=== PATIENT | male | born 1955 | race Caucasian/White ===

== ENCOUNTER 2017-12-01 08:30 | Outpatient (RCR) | payer OTHER | END 2017-12-03 | disposition home or self-care (01) | LOC: PT | DX: S43.431D Superior glenoid labrum lesion of right shoulder, subsequent encounter (principal); M75.111 Incomplete rotator cuff tear or rupture of right shoulder, not specified as traumatic ==

== ENCOUNTER 2018-03-28 08:00 | Outpatient (RCR) | payer OTHER | END 2018-04-01 | disposition home or self-care (01) | LOC: PT | DX: M75.121 Complete rotator cuff tear or rupture of right shoulder, not specified as traumatic (principal); S43.431D Superior glenoid labrum lesion of right shoulder, subsequent encounter ==

== ENCOUNTER 2018-05-02 08:00 | Outpatient (RCR) | payer OTHER | END 2018-05-02 08:30 | disposition home or self-care (01) | LOC: PT 08:00 | DX: M75.121 Complete rotator cuff tear or rupture of right shoulder, not specified as traumatic (principal); S43.431D Superior glenoid labrum lesion of right shoulder, subsequent encounter ==

== ENCOUNTER 2019-02-14 09:30 | Outpatient (RCR) | payer OTHER | END 2019-02-14 10:00 | disposition still patient (30) | LOC: PT 09:30 | DX: M25.511 Pain in right shoulder (principal) ==

== ENCOUNTER 2021-08-30 10:00 | Outpatient (RCR) | payer BC | END 2021-08-30 17:00 | LOC: PT 10:00 | DX: Z98.1 Arthrodesis status (principal) ==

== ENCOUNTER 2021-09-03 12:57 | Outpatient (RCR) | payer BC | END 2021-09-27 | disposition home or self-care (01) | LOC: PT → OT 12:57 → PT 12:57 | DX: Z98.1 Arthrodesis status (principal) ==

== ENCOUNTER 2021-10-01 10:30 | Outpatient (RCR) | payer BC | END 2021-10-28 | disposition home or self-care (01) | LOC: PT | DX: Z98.1 Arthrodesis status (principal) ==

== ENCOUNTER 2021-11-01 09:25 | Outpatient (RCR) | payer BC | END 2021-11-27 | disposition home or self-care (01) | LOC: PT | DX: Z98.1 Arthrodesis status (principal) ==

== ENCOUNTER 2021-12-01 09:48 | Outpatient (RCR) | payer BC | END 2021-12-28 | disposition home or self-care (01) | LOC: PT | DX: Z98.1 Arthrodesis status (principal) ==

== ENCOUNTER 2021-12-30 10:02 | Outpatient (RCR) | payer BC | END 2022-01-27 | disposition home or self-care (01) | LOC: PT | DX: Z98.1 Arthrodesis status (principal) ==